=== PATIENT | female | born 1995 | race Caucasian/White ===

== ENCOUNTER 2017-02-16 20:43 | Emergency (ER) | payer SELFPAY ==
[2017-02-16 21:26] LABS: APPEARANCE CLEAR (CLEAR); BILIRUBIN NEGATIVE (NEGATIVE); COLOR YELLOW (YELLOW); GLUCOSE NEGATIVE (NEGATIVE); KETONE NEGATIVE (NEGATIVE); LEUKOCYTE ESTERASE NEGATIVE (NEGATIVE); NITRITE NEGATIVE (NEGATIVE); PROTEIN NEGATIVE (NEGATIVE); SPECIFIC GRAVITY 1.025 (1.005-1.020); UROBILINOGEN NORMAL (NORMAL)
[2017-02-16 21:37] LABS: BASOPHILS 0.1 % (0-2); EOSINOPHILS 1.5 % (0-7); HEMATOCRIT 38.7 % (36.0-48.0); HEMOGLOBIN 13.4 g/dL (12-16); IMMATURE GRANULOCYTES 0.2 % (0-5); LYMPHOCYTES 27.6 % (15-50); MCH 30.7 pg (26.0-34.0); MCHC 34.6 g/dL (31.0-37.0); MCV 88.8 fL (80.0-100.0); MEAN PLATELET VOLUME 10.2 fL (7.4-10.4); MONOCYTES 6.2 % (2-11); NEUTROPHILS 64.4 % (40-80); PLATELET COUNT 162 10x3/uL (130-400); RBC 4.36 10x6/uL (4.00-5.40); RDW 12.6 % (11.5-14.5); WBC 8.8 10x3/uL (4.8-10.8)
[2017-02-16 22:29] LABS: ALKALINE PHOSPHATASE 54 U/L (46-116); ALT (SGPT) 13 U/L (10-68); BILIRUBIN - TOTAL 0.15 mg/dL (0.2-1.3); CALC OSMOLALITY 272 mosm/kg (275-300); CALCIUM 8.7 mg/dL (8.5-10.1); CARBON DIOXIDE 24.9 mmol/L (21.0-32.0); CHLORIDE - SERUM 103 mmol/L (98-107); CREATININE - SERUM 0.5 mg/dL (0.6-1.3); GLUCOSE 77 mg/dL (74-106); POTASSIUM - SERUM 3.6 mmol/L (3.5-5.1); PROTEIN - SERUM 6.3 g/dL (6.4-8.2); SODIUM 138 mmol/L (136-145); UREA NITROGEN 6 mg/dL (7-18); eGFR NON AFRICAN AMERICAN > 90 mL/min (90-120)
[2017-02-16 22:50] LABS: HCG - QUANTITATIVE (MATERNAL) 12200 mIU/mL
== END 2017-02-16 23:07 | disposition home or self-care (01) ==
LOC: D.ER 20:43
PROVIDERS: Emergency Medicine Emergency Medical Services
DX: O26.892 Other specified pregnancy related conditions, second trimester (principal); Z3A.19 19 weeks gestation of pregnancy; N89.8 Other specified noninflammatory disorders of vagina

== ENCOUNTER → 2017-05-01 13:27 | Outpatient (CLI) | payer MEDICAID ==
[2017-05-01 14:52] LABS: APPEARANCE HAZY (CLEAR); COLOR DK YELLOW (YELLOW)
[2017-05-01 14:53] LABS: BILIRUBIN NEGATIVE (NEGATIVE); GLUCOSE NEGATIVE (NEGATIVE); KETONE NEGATIVE (NEGATIVE); LEUKOCYTE ESTERASE TRACE (NEGATIVE); NITRITE NEGATIVE (NEGATIVE); PROTEIN NEGATIVE (NEGATIVE); SPECIFIC GRAVITY 1.015 (1.005-1.020); UROBILINOGEN NORMAL (NORMAL)
[2017-05-01 14:55] LABS: BACTERIA FEW /hpf (NONE SEEN); EPITHELIAL CELLS 0-5 /hpf (0-5); RED CELLS - URINE 0-5 /hpf (0-5); WHITE CELLS - URINE 0-5 /hpf (0-5)
== END | disposition home or self-care (01) ==
LOC: D.LDO 13:27
PROVIDERS: Obstetrics & Gynecology
DX: O26.893 Other specified pregnancy related conditions, third trimester (principal); Z3A.28 28 weeks gestation of pregnancy; R10.9 Unspecified abdominal pain; R10.2 Pelvic and perineal pain

== ENCOUNTER 2017-05-31 20:04 | Outpatient (CLI) | payer MEDICAID | END 2017-05-31 20:45 | disposition home or self-care (01) | LOC: D.LDO 20:04 | DX: Z34.83 Encounter for supervision of other normal pregnancy, third trimester (principal); Z3A.32 32 weeks gestation of pregnancy; W19.XXXA Unspecified fall, initial encounter ==

== ENCOUNTER → 2017-06-15 14:59 | Outpatient (CLI) | payer MEDICAID ==
[2017-06-15 16:17] LABS: BASOPHILS 0.1 % (0-2); HEMATOCRIT 35.3 % (36.0-48.0); HEMOGLOBIN 12.2 g/dL (12-16); IMMATURE GRANULOCYTES 0.4 % (0-5); LYMPHOCYTES 26.3 % (15-50); MCHC 34.6 g/dL (31.0-37.0); MCV 89.6 fL (80.0-100.0); MEAN PLATELET VOLUME 10.1 fL (7.4-10.4); MONOCYTES 6.5 % (2-11); NEUTROPHILS 65.7 % (40-80); PLATELET COUNT 193 10x3/uL (130-400); RBC 3.94 10x6/uL (4.00-5.40); RDW 12.7 % (11.5-14.5); WBC 8.1 10x3/uL (4.8-10.8)
[2017-06-15 17:14] LABS: ALBUMIN 2.6 g/dL (3.4-5.0); BILIRUBIN - DIRECT 0.04 mg/dL (0.00-0.30); BILIRUBIN - INDIRECT 0.13 mg/dL (0.00-1.00); BILIRUBIN - TOTAL 0.17 mg/dL (0.2-1.3); PROTEIN - SERUM 6.2 g/dL (6.4-8.2)
[2017-06-15 17:18] LABS: APPEARANCE CLEAR (CLEAR); BILIRUBIN NEGATIVE (NEGATIVE); COLOR YELLOW (YELLOW); GLUCOSE NEGATIVE (NEGATIVE); KETONE NEGATIVE (NEGATIVE); LEUKOCYTE ESTERASE NEGATIVE (NEGATIVE); NITRITE NEGATIVE (NEGATIVE); PROTEIN NEGATIVE (NEGATIVE); SPECIFIC GRAVITY 1.015 (1.005-1.020); UROBILINOGEN NORMAL (NORMAL)
== END | disposition home or self-care (01) ==
LOC: D.LDO 14:59
PROVIDERS: Obstetrics & Gynecology
DX: O36.8130 Decreased fetal movements, third trimester, not applicable or unspecified (principal); Z3A.34 34 weeks gestation of pregnancy

== ENCOUNTER 2017-06-20 12:10 | Inpatient (IN) | payer MEDICAID ==
[2017-06-20 12:53] LABS: APPEARANCE CLEAR (CLEAR); BILIRUBIN NEGATIVE (NEGATIVE); COLOR YELLOW (YELLOW); GLUCOSE NEGATIVE (NEGATIVE); KETONE NEGATIVE (NEGATIVE); LEUKOCYTE ESTERASE NEGATIVE (NEGATIVE); NITRITE NEGATIVE (NEGATIVE); PROTEIN NEGATIVE (NEGATIVE); SPECIFIC GRAVITY 1.005 (1.005-1.020); UROBILINOGEN NORMAL (NORMAL)
[2017-06-20 15:15] LABS: HEMATOCRIT 34.8 % (36.0-48.0); HEMOGLOBIN 11.8 g/dL (12-16); MCH 30.9 pg (26.0-34.0); MCHC 33.9 g/dL (31.0-37.0); MCV 91.1 fL (80.0-100.0); RBC 3.82 10x6/uL (4.00-5.40); RDW 12.9 % (11.5-14.5); WBC 10.7 10x3/uL (4.8-10.8)
--- NOTE | 2017-06-20 18:25 | NUR ---
CALLED IN TO DO CASE. PREPARED FOR IT THEN TOLD HE HAD TO FINISH A DELIVERY. THEN TOLD HE HAD TO DO A REPAIR AND TO LEAVE OR WAIT AN HOUR. BUMPED BY A LAP APPY. TOLD HE WOULD LET THE PT DECIDE IF SHE WANTED THE SECTION. PT DECIDED TO LEAVE
[2017-06-23 07:25] LABS: RAPID PLASMA REAGIN Non Reactive (Non Reactive)
== END 2017-06-20 18:40 | disposition home or self-care (01) | DRG 782 ==
LOC: D.LDO 12:10 → D.LD 14:31
PROVIDERS: ADMIT Obstetrics & Gynecology
DX: O34.211 Maternal care for low transverse scar from previous cesarean delivery (principal); Z3A.35 35 weeks gestation of pregnancy; O99.333 Smoking (tobacco) complicating pregnancy, third trimester

== ENCOUNTER → 2017-06-24 10:48 | Outpatient (CLI) | payer MEDICAID | END | disposition home or self-care (01) | LOC: D.LDO 10:48 | DX: O62.9 Abnormality of forces of labor, unspecified (principal); Z3A.36 36 weeks gestation of pregnancy ==

== ENCOUNTER 2017-07-13 09:15 | Inpatient (IN) | payer MEDICAID ==
[~2017-07-13] VITALS: Ht 165.1 cm; Wt 123.6 kg
[2017-07-13] MEDS ORDERED: PREVACID15 MG PO (11:05)
[2017-07-13 11:18] VITALS: Ht 165.1 cm; Wt 123.6 kg
[2017-07-14 07:20] VITALS: BP 112/64
[2017-07-14] MEDS ORDERED: HYDROCODONE-APA1 TAB PO (15:14)
[2017-07-14] MEDS ORDERED: IBUPROFEN600 MG PO (15:14)
== END 2017-07-14 15:45 | disposition home or self-care (01) | DRG 766 ==
LOC: D.LD 09:15 → D.WS 09:15 → D.SDCHOLD 12:00 → D.WS 16:08
PROVIDERS: ADMIT Obstetrics & Gynecology
PROC: 10D00Z1 Extraction of Products of Conception, Low, Open Approach (ICD-10-PCS; principal; 2017-07-13 12:00)
DX: O34.219 Maternal care for unspecified type scar from previous cesarean delivery (principal); Z3A.39 39 weeks gestation of pregnancy; Z37.0 Single live birth; O26.893 Other specified pregnancy related conditions, third trimester; Z67.91 Unspecified blood type, Rh negative; O99.214 Obesity complicating childbirth; O99.334 Smoking (tobacco) complicating childbirth

== ENCOUNTER 2017-07-23 20:40 | Observation (INO) | payer MEDICAID ==
[~2017-07-23 20:40] MED LIST: HYDROCODONE-APA1 TAB PO; IBUPROFEN600 MG PO; PREVACID15 MG PO
[2017-07-23 21:28] LABS: APPEARANCE CLEAR (CLEAR); BILIRUBIN NEGATIVE (NEGATIVE); COLOR YELLOW (YELLOW); GLUCOSE NEGATIVE (NEGATIVE); KETONE NEGATIVE (NEGATIVE); NITRITE NEGATIVE (NEGATIVE); PROTEIN NEGATIVE (NEGATIVE); UDS - AMPHET NEGATIVE QUAL (NEGATIVE); UDS - BARB NEGATIVE QUAL (NEGATIVE); UDS - BENZO NEGATIVE QUAL (NEGATIVE); UDS - COCAINE NEGATIVE QUAL (NEGATIVE); UDS - OPIATE NEGATIVE QUAL (NEGATIVE); UDS - PCP NEGATIVE QUAL (NEGATIVE); UDS - THC NEGATIVE QUAL (NEGATIVE); UROBILINOGEN NORMAL (NORMAL)
[2017-07-23 21:30] LABS: BACTERIA FEW /hpf (NONE SEEN)
[2017-07-23 21:31] LABS: RED CELLS - URINE 0-5 /hpf (0-5)
[2017-07-23 21:32] LABS: BASOPHILS 0.2 % (0-2); EOSINOPHILS 1.6 % (0-7); HEMATOCRIT 37.6 % (36.0-48.0); HEMOGLOBIN 12.9 g/dL (12-16); IMMATURE GRANULOCYTES 0.2 % (0-5); MCH 30.4 pg (26.0-34.0); MCHC 34.3 g/dL (31.0-37.0); MCV 88.5 fL (80.0-100.0); MEAN PLATELET VOLUME 9.6 fL (7.4-10.4); MONOCYTES 6.1 % (2-11); NEUTROPHILS 62.9 % (40-80); RBC 4.25 10x6/uL (4.00-5.40); RDW 12.4 % (11.5-14.5)
[2017-07-23 21:34] LABS: PLATELET COUNT 243 10x3/uL (130-400)
[2017-07-23 21:46] LABS: ALBUMIN 3.3 g/dL (3.4-5.0); ALKALINE PHOSPHATASE 103 U/L (46-116); ALT (SGPT) 19 U/L (10-68); BILIRUBIN - TOTAL 0.21 mg/dL (0.2-1.3); CALC OSMOLALITY 277 mosm/kg (275-300); CALCIUM 9.1 mg/dL (8.5-10.1); CARBON DIOXIDE 25.6 mmol/L (21.0-32.0); CHLORIDE - SERUM 106 mmol/L (98-107); GLUCOSE 88 mg/dL (74-106); POTASSIUM - SERUM 3.7 mmol/L (3.5-5.1); PROTEIN - SERUM 7.3 g/dL (6.4-8.2); SODIUM 141 mmol/L (136-145); UREA NITROGEN 8 mg/dL (7-18); eGFR NON AFRICAN AMERICAN 73 mL/min (90-120)
[2017-07-23 22:18] LABS: CREATINE KINASE 112 UL (21-215); PRO BNP 1263 pg/mL (0-125); TROPONIN-I < 0.017 ng/mL (0.000-0.060)
--- NOTE | 2017-07-24 01:45 | NUR ---
RECEIVED TO 1278 VIA WHEELCHAIR FROM ER. PT. WITH SALINE LOCK IN LT AC. PT. IN FLEECE [place] PANTS AND TSHIRT. DESIRES TO LEAVE SAME CLOTHES ON INCLUDING HOUSE SHOES TO GET INTO BED. PT. C/O FEELING COLD. COVERED WITH BLANKET. PT. REPORTS SCANT DARK VAGINAL SPOTTING . LOWER ABD. INCISION NOTED WITH EDGES APPROXIMATED POST OF 10 DAYS AGO. PT. C/O HEADACHE AND NAUSEA. INFORMED PT. WOULD HAVE TO REVIEW ORDERS.
--- NOTE | 2017-07-24 01:50 | NUR ---
PT. REQUESTING PAIN MEDICATION. INFORMED PT. OF TIME SHE RECEIVED LAST DOSE AND WHEN NEXT DOSE IS DUE. PT. SPEECH SLOW AND SLURRED PRIOR TO HER DOZING OFF.
--- NOTE | 2017-07-24 01:59 | NUR ---
ZOFRAN 4MG GIVEN IVP SLOWLY FOR C/O NAUSEA. PT. SITTING UP IN BED WITH HEAD SLUMPED AND ASLEEP. AWAKENS TO VERBAL STIMULATION.
[2017-07-24] MEDS ORDERED: ACETAMINOPHEN500 M1 PO (02:07)
[2017-07-24 02:11] VITALS: BP 142/49; BMI 43.3
[2017-07-24] MEDS ORDERED: IMITREX100 MG (02:11)
--- NOTE | 2017-07-24 02:29 | NUR ---
CURRENTLY HOB AT 30 DEGREES AND PT. UNWILLING TO LOWER HEAD OF BED. PT. SLUMPED OVER IN BED SLEEPING.
--- NOTE | 2017-07-24 02:30 | NUR ---
ADMIT ASSESSMENT COMPLETED. PT.REPORTS THAT SHE HAS TAKEN ALL OF NORCO 10MG THAT SHE WAS DISCHARGED HOME POST WITH. PT. STATES HER DROPPED HER OFF AT THE ER AND IS PRESENTLY AT HOME WITH INFANT AND OTHER CHILDREN. PT. SLOW TO ANSWER QUESTIONS AND QUICK TO DOZE OFF DURING QUESTIONING.
--- NOTE | 2017-07-24 02:32 | NUR ---
NO PITTING EDEMA NOTED IN LOWER EXTREMITIES. APPLE JUICE SERVED PER PT. REQUEST.
[2017-07-24 02:34] VITALS: BP 134/77
--- NOTE | 2017-07-24 02:47 | NUR ---
PT. CURRENTLY ASLEEP AND DOES NOT AROUSE TO THIS NURSE IN ROOM. CALL LIGHT WITHIN REACH AND SIDE RAILS UP X 2.
--- NOTE | 2017-07-24 03:18 | NUR ---
LYING ON BACK WITH HOB AT 30 DEGREES ASLEEP. RESPIRATIONS REGULAR.
--- NOTE | 2017-07-24 03:58 | NUR ---
LYING ON BACK WITH EYES CLOSED. RESPIRATIONS REGULAR.
--- NOTE | 2017-07-24 05:35 | NUR ---
LYING IN LT TILT WITH EYES CLOSED. RESPIRATIONS REGULAR.
--- NOTE | 2017-07-24 07:20 | NUR ---
DR MENDEZ HERE. VISITS WITH PT. DISCUSSES POC WITH PT.
[2017-07-24 07:28] VITALS: BP 136/87
--- NOTE | 2017-07-24 07:28 | NUR ---
ASSESSMENT COMPLETED. PT FALLS ASLEEP WHILE NURSE TALKING TO PT. HRRR WITHOUT AUDIBLE MURMUR. BBS CLEAR. BS X 4. ABDOMEN SOFT/NON-DISTENDED. ABD INCISION TO LOWER ABDOMEN WELL HEALED WITHOUT REDNESS, SWELLING OR DRAINAGE NOTED. SCANT BROWN DISCHARGE NOTED ON PERIPAD. PT STATES HAS NOT CHANGED PERIPAD SINCE ARRIVAL TO L&D. NEG HOMANS' SIGN. PPP. NO EDEMA NOTED TO BLE. SL TO LEFT AC. SITE CLEAR. PERLLA. STICK ROLLER STRONG WITH BOTH HANDS. PT STATES C/O HEADACHE NOT RELIEVED BY PAIN MEDICATION. PT QUICKLY FALLS ASLEEP IN BETWEEN QUESTIONS/STATEMENTS. PT REQUESTS AND RECEIVES MORE APPLE JUICE. DENIES NAUSEA AT THIS TIME. SR UP XP 2. CALL LIGHT IN REACH.
[2017-07-24 07:29] VITALS: BP 123/68
--- NOTE | 2017-07-24 08:15 | NUR ---
DR MENDEZ TO ROOM. LIDOCAINE 4% 1 ML EACH NOSTRIL GIVEN PER DR MENDEZ. PT INSTRUCTED ON MEDICATION. VERBALIZES UNDERSTANDING.
--- NOTE | 2017-07-24 09:30 | NUR ---
PT LYING SUPINE IN BED WITH HOB UP 45 DEGREES. EYES CLOSED. RESP NON-LABORED. PT NOT DISTURBED TO ALLOW FOR REST.
--- NOTE | 2017-07-24 11:10 | NUR ---
DR MENDEZ CALLS UNIT. [facility] HAS TALKED WITH RADIOLOGY. DR MENDEZ GIVES DISCHARGE ORDER.
[2017-07-24] MEDS ORDERED: REGLAN10 MG PO (11:42)
[2017-07-24] MEDS ORDERED: TYLENOL W/CODEI1 TAB PO (11:43)
--- NOTE | 2017-07-24 12:03 | NUR ---
DISCHARGE INSTRUCTIONS GIVEN TO PT. PT VERBALIZES UNDERSTANDING OF ALL INSTRUCTIONS. COPIES GIVEN TO PT. RX FOR REGLAN AND TYLENOL #3 GIVEN TO PT. PT INSTRUCTED TO CALL CLINIC ON THURSDAY PER DR MENDEZ RE: LIDOCAINE NASAL SPRAY. PT VERBALIZES UNDERSTANDING.
--- NOTE | 2017-07-24 12:10 | NUR ---
PT HERE. DISCHARGED VIA WHEELCHAIR TO PRIVATE VEHICLE. PT NATALIA WELL.
--- NOTE | 2017-07-28 22:01 | EC ---
PATIENT:CORY PACHECO DATE OF SERVICE: 07/23/17 SEX: F MEDICAL RECORD: [id number] DATE OF : [birth year] LOCATION:[facility] AGE OF PATIENT: 22 ADMISSION DATE: 07/23/17 REFERRING PHYSICIAN: INTERPRETING PHYSICIAN: GENNARO ALY MD ECHOCARDIOGRAM REPORT ECHO CHARGES 4 ECHO COMPLETE CLINICAL DIAGNOSIS: SOB/ELEVATED PORTIME/BNP POST ECHOCARDIOGRAPHIC MEASUREMENTS (adult normal given) AC root (d.<3.7cm) 3.2 cm LV Septum d (<1.2 cm> 1.2 cm Valve Excursion 2.1 cm LV Septum (systole) 1.3 cm Left Atria (s.<4.0cm> 3.4 cm LVPW d(<1.2cm) 1.1 cm RV (d.<2.3cm) 3.2 cm LVPW (sytole) 1.7 cm LV diastole(<5.6CM) 5.3 cm MV E-F(>70mm/sec) cm LV systole 3.6 cm LVOT Diameter 2.1 cm MV exc.(>10mm) cm Est.ejection fraction (50-75%) % Pericardial Effusion N DOPPLER: LVIT cm/sec A 77.0 cm/sec E 101 cm/sec LA cm/sec RVSP 27 mmHg LVOT 107 cm/sec AOP1/2T m/s Asc. Ao 138 cm/sec RVOT 92 cm/sec RA cm/sec PA 150 cm/sec AV Gradient Peak 7.60 mmHg AV Mean 3.53 mmHg AV Area 3.0 cm MV Gradient Peak 8.03 mmHg MV Mean 2.35 mmHg MV Area cm COMMENTS: Unishear Operator: 2 FELIPA CHICAS Files Supervisor: 4 Dr. Aly TAPE# PACS DATE OF SERVICE: 07/24/2017 PROCEDURE: Transthoracic echocardiogram. FINDINGS: 1. The left ventricle is shown to have mild concentric left ventricular hypertrophy. The inflow characteristics are consistent with pseudonormalization mild diastolic dysfunction. 2. The left ventricular ejection fraction is 65%. There are no regional wall motion abnormalities. ECHOCARDIOGRAM REPORT [id number] CORY PACHECO 3. The mitral valve is normal. 4. The left atrium is normal. 5. The right atrium is normal. 6. The tricuspid valve is normal with normal right ventricular systolic pressures. 7. The pericardium is normal. 8. The pulmonic valve is normal. 9. The right atrium is normal. CONCLUSION: The patient has normal heart function and normal inflow characteristics. No evidence of systolic or diastolic dysfunction. TRANSINT:[id number] Voice Confirmation ID: [id number] DOCUMENT ID: [id number] GENNARO ALY MD at 2201 CC: [id number] DICTATION DATE: 07/27/17 1035 OUTPATIENT PHYSICAL THERAPIST ASSISTANT: 07/27/17 1140 DIS IN 07/24/17 [facility] [address] [place] [address]
== END 2017-07-24 12:10 | disposition home or self-care (01) ==
LOC: D.ER 20:40 → OBSVTIME 23:50 → D.LD 23:50
PROVIDERS: Emergency Medicine; ADMIT Obstetrics & Gynecology
DX: O90.89 Other complications of the puerperium, not elsewhere classified (principal); R51 Headache

== ENCOUNTER → 2017-08-05 15:56 | Outpatient (CLI) | payer MEDICAID ==
[2017-07-24 02:11] VITALS: BMI 43.3
[~2017-08-05 15:56] MED LIST changes: +ACETAMINOPHEN500 M1 PO; +IMITREX100 MG; +REGLAN10 MG PO; +TYLENOL W/CODEI1 TAB PO
== END | disposition home or self-care (01) ==
LOC: D.US 15:56
DX: R07.9 Chest pain, unspecified (principal); R10.9 Unspecified abdominal pain

== ENCOUNTER 2017-11-30 21:35 | Emergency (ER) | payer SELFPAY ==
[2017-11-30 22:15] LABS: AMORPHOUS SEDIMENT >1+ /lpf (NONE SEEN); APPEARANCE SLT CLOUDY (CLEAR); BACTERIA MODERATE /hpf (NONE SEEN); BILIRUBIN NEGATIVE (NEGATIVE); COLOR YELLOW (YELLOW); GLUCOSE NEGATIVE (NEGATIVE); KETONE NEGATIVE (NEGATIVE); MUCUS <1+ /lpf (NONE SEEN); NITRITE NEGATIVE (NEGATIVE); PROTEIN NEGATIVE (NEGATIVE); RED CELLS - URINE OCC /hpf (0-5); SPECIFIC GRAVITY 1.015 (1.005-1.020); UROBILINOGEN NORMAL (NORMAL); WHITE CELLS - URINE 0-5 /hpf (0-5)
[2017-11-30 22:32] LABS: BASOPHILS 0.2 % (0-2); EOSINOPHILS 1.4 % (0-7); HEMATOCRIT 42.8 % (36.0-48.0); HEMOGLOBIN 14.3 g/dL (12-16); LYMPHOCYTES 26.3 % (15-50); MCH 28.9 pg (26.0-34.0); MCHC 33.4 g/dL (31.0-37.0); MCV 86.6 fL (80.0-100.0); MEAN PLATELET VOLUME 9.8 fL (7.4-10.4); MONOCYTES 6.8 % (2-11); NEUTROPHILS 65.3 % (40-80); RBC 4.94 10x6/uL (4.00-5.40); RDW 12.6 % (11.5-14.5)
[2017-11-30 22:33] LABS: PLATELET COUNT 176 10x3/uL (130-400)
[2017-11-30 22:37] LABS: HCG SERUM NEGATIVE (NEGATIVE)
[2017-11-30 22:43] LABS: ALBUMIN 3.8 g/dL (3.4-5.0); ALKALINE PHOSPHATASE 101 U/L (46-116); ALT (SGPT) 95 U/L (10-68); CALC OSMOLALITY 276 mosm/kg (275-300); CALCIUM 8.8 mg/dL (8.5-10.1); CARBON DIOXIDE 27.2 mmol/L (21.0-32.0); CHLORIDE - SERUM 104 mmol/L (98-107); CREATININE - SERUM 0.8 mg/dL (0.6-1.3); GLUCOSE 79 mg/dL (74-106); POTASSIUM - SERUM 3.8 mmol/L (3.5-5.1); PROTEIN - SERUM 7.6 g/dL (6.4-8.2); SODIUM 140 mmol/L (136-145); UREA NITROGEN 10 mg/dL (7-18); eGFR NON AFRICAN AMERICAN > 90 mL/min (90-120)
[2017-12-01 01:37] LABS: AMYLASE - SERUM 52 U/L (25-115); LIPASE 143 U/L (73-393)
== END 2017-12-01 03:49 | disposition home or self-care (01) ==
LOC: D.ER 21:35
PROVIDERS: Family Medicine
DX: N39.0 Urinary tract infection, site not specified (principal); K63.89 Other specified diseases of intestine; I10 Essential (primary) hypertension

== ENCOUNTER 2018-05-07 13:07 | Emergency (ER) | payer BC ==
[~2018-05-07] VITALS: Ht 162.6 cm; Wt 110.0 kg
[2018-05-07 13:11] VITALS: Ht 162.6 cm; Wt 110.0 kg
[2018-05-07 14:44] LABS: HCG URINE NEGATIVE (NEGATIVE)
[2018-05-07] MEDS ORDERED: TORADOL10 MG PO (15:49)
[2018-05-07 16:21] VITALS: BP 121/78
== END 2018-05-07 16:22 | disposition home or self-care (01) ==
LOC: D.ER 13:07
PROVIDERS: Emergency Medicine
DX: S39.011A Strain of muscle, fascia and tendon of abdomen, initial encounter (principal); X58.XXXA Exposure to other specified factors, initial encounter; Y93.89 Activity, other specified; Y92.89 Other specified places as the place of occurrence of the external cause; F17.200 Nicotine dependence, unspecified, uncomplicated

== ENCOUNTER 2019-11-06 23:19 | Emergency (ER) | payer SELFPAY ==
[~2019-11-06] VITALS: Ht 162.6 cm; Wt 99.8 kg
[~2019-11-06 23:19] MED LIST changes: +TORADOL10 MG PO
[2019-11-06 23:35] VITALS: Ht 162.6 cm; Wt 99.8 kg
[2019-11-07 00:17] LABS: BASOPHILS 0.1 % (0-2); CALC OSMOLALITY 282 mosm/kg (275-300); CALCIUM 8.9 mg/dL (8.5-10.1); CARBON DIOXIDE 28.4 mmol/L (21.0-32.0); CHLORIDE - SERUM 106 mmol/L (98-107); CREATININE - SERUM 0.8 mg/dL (0.6-1.3); EOSINOPHILS 2.6 % (0-7); GLUCOSE 93 mg/dL (74-106); HEMOGLOBIN 14.8 g/dL (12-16); IMMATURE GRANULOCYTES 0.1 % (0-5); LYMPHOCYTES 41.6 % (15-50); MCH 30.8 pg (26.0-34.0); MCHC 35.2 g/dL (31.0-37.0); MCV 87.3 fL (80.0-100.0); MEAN PLATELET VOLUME 9.8 fL (7.4-10.4); MONOCYTES 6.3 % (2-11); NEUTROPHILS 49.3 % (40-80); PLATELET COUNT 191 10x3/uL (130-400); POTASSIUM - SERUM 3.5 mmol/L (3.5-5.1); RBC 4.81 10x6/uL (4.00-5.40); RDW 12.3 % (11.5-14.5); SODIUM 142 mmol/L (136-145); UREA NITROGEN 13 mg/dL (7-18); eGFR NON AFRICAN AMERICAN > 90 mL/min (90-120)
[2019-11-07 00:20] LABS: APPEARANCE CLEAR (CLEAR); BILIRUBIN NEGATIVE (NEGATIVE); COLOR YELLOW (YELLOW); GLUCOSE NEGATIVE (NEGATIVE); KETONE NEGATIVE (NEGATIVE); NITRITE NEGATIVE (NEGATIVE); PROTEIN NEGATIVE (NEGATIVE); UROBILINOGEN NORMAL (NORMAL)
[2019-11-07 00:21] LABS: BACTERIA NONE SEEN /hpf (NEGATIVE); EPITHELIAL CELLS 0-5 /hpf (0-5); RED CELLS - URINE 0-5 /hpf (0-5); WHITE CELLS - URINE 0-5 /hpf (NEGATIVE)
[2019-11-07 00:23] LABS: ALBUMIN 3.4 g/dL (3.4-5.0); ALKALINE PHOSPHATASE 76 U/L (46-116); ALT (SGPT) 51 U/L (10-68); AMYLASE - SERUM 61 U/L (25-115); BILIRUBIN - TOTAL 0.22 mg/dL (0.2-1.3); LIPASE 180 U/L (73-393); PROTEIN - SERUM 6.9 g/dL (6.4-8.2)
[2019-11-07 00:32] LABS: HCG SERUM NEGATIVE (NEGATIVE)
[2019-11-07] MEDS ORDERED: ULTRAM50 MG PO (01:39)
[2019-11-07 03:01] VITALS: BP 110/89
== END 2019-11-07 02:50 | disposition home or self-care (01) ==
LOC: D.ER 23:19
PROVIDERS: Emergency Medicine
DX: R10.9 Unspecified abdominal pain (principal); R30.9 Painful micturition, unspecified; Z86.73 Personal history of transient ischemic attack (TIA), and cerebral infarction without residual deficits

== ENCOUNTER 2020-04-09 15:57 | Emergency (ER) | payer OTHER ==
[~2020-04-09] VITALS: Ht 162.6 cm; Wt 109.1 kg
[~2020-04-09 15:57] MED LIST changes: +ULTRAM50 MG PO
[2020-04-09 16:04] VITALS: BP 114/76; Ht 162.6 cm; Wt 109.1 kg
== END 2020-04-09 19:00 | disposition home or self-care (01) ==
LOC: D.ER 15:57
DX: O26.891 Other specified pregnancy related conditions, first trimester (principal); Z3A.12 12 weeks gestation of pregnancy; W19.XXXA Unspecified fall, initial encounter; Y93.9 Activity, unspecified; Y92.9 Unspecified place or not applicable; Z91.81 History of falling; R07.81 Pleurodynia

== ENCOUNTER 2020-06-11 17:10 | Outpatient (CLI) | payer SELFPAY ==
[2020-04-09 16:04] VITALS: BMI 41.3
[2020-06-11 18:22] LABS: BILIRUBIN NEGATIVE (NEGATIVE); GLUCOSE NEGATIVE (NEGATIVE); KETONE NEGATIVE (NEGATIVE); NITRITE NEGATIVE (NEGATIVE); UROBILINOGEN NORMAL (NORMAL)
[2020-06-11 18:25] LABS: RED CELLS - URINE OCC /hpf (0-5); WHITE CELLS - URINE 0-5 /hpf (NEGATIVE)
[2020-06-11 18:26] LABS: BACTERIA FEW /hpf (NEGATIVE)
== END 2020-06-11 19:25 | disposition home or self-care (01) ==
LOC: D.LDO 17:10
PROVIDERS: ATTEND Student in an Organized Health Care Education/Training Program
DX: O26.892 Other specified pregnancy related conditions, second trimester (principal); Z3A.21 21 weeks gestation of pregnancy; R10.10 Upper abdominal pain, unspecified; R51 Headache

== ENCOUNTER → 2020-06-21 09:41 | Outpatient (CLI) | payer OTHER ==
[2020-04-09 16:04] VITALS: BMI 41.3
== END | disposition home or self-care (01) ==
LOC: D.US 09:41
PROVIDERS: ATTEND Obstetrics & Gynecology
DX: R60.0 Localized edema (principal)

== ENCOUNTER 2021-02-25 14:17 | Emergency (ER) | payer OTHER ==
[~2021-02-25] VITALS: Ht 162.6 cm; Wt 109.1 kg
[~2021-02-25 14:17] MED LIST changes: +PERCOCET 10-321 EAC1 PO
[2021-02-25 14:32] VITALS: Ht 162.6 cm; Wt 109.1 kg
[2021-02-25 15:25] LABS: BASOPHILS 0.2 % (0-2); EOSINOPHILS 3.1 % (0-7); HEMATOCRIT 41.4 % (36.0-48.0); HEMOGLOBIN 14.3 g/dL (12-16); IMMATURE GRANULOCYTES 0.2 % (0-5); LYMPHOCYTE ABS# 2.35 10x3/uL (1.18-3.74); LYMPHOCYTES 26.3 % (15-50); MCH 30.1 pg (26.0-34.0); MCHC 34.5 g/dL (31.0-37.0); MCV 87.2 fL (80.0-100.0); MEAN PLATELET VOLUME 10.2 fL (7.4-10.4); NEUTROPHIL ABS# 5.82 10x3/uL (1.56-6.13); NEUTROPHILS 65.2 % (40-80); RBC 4.75 10x6/uL (4.00-5.40); RDW 12.3 % (11.5-14.5); WBC 8.9 10x3/uL (4.8-10.8)
[2021-02-25 15:29] LABS: INR 1.02 (0.85-1.17); PROTIME 12.4 SECONDS (11.6-15.0)
[2021-02-25 15:30] LABS: APTT 28.4 SECONDS (22.8-39.4)
[2021-02-25 15:34] LABS: CALC OSMOLALITY 277 mosm/kg (275-300); CALCIUM 9.1 mg/dL (8.5-10.1); CARBON DIOXIDE 25.2 mmol/L (21.0-32.0); CHLORIDE - SERUM 103 mmol/L (98-107); CREATININE - SERUM 0.9 mg/dL (0.6-1.3); GLUCOSE 93 mg/dL (74-106); POTASSIUM - SERUM 3.9 mmol/L (3.5-5.1); SODIUM 139 mmol/L (136-145); UREA NITROGEN 12 mg/dL (7-18); eGFR NON AFRICAN AMERICAN 80 mL/min (90-120)
[2021-02-25 15:47] LABS: ALBUMIN 3.6 g/dL (3.4-5.0); ALKALINE PHOSPHATASE 107 U/L (30-120); ALT (SGPT) 215 U/L (10-68); BILIRUBIN - TOTAL 0.26 mg/dL (0.2-1.3); HCG - QUANTITATIVE (MATERNAL) 0 mIU/mL; PLATELET COUNT 227 10x3/uL (130-400); PROTEIN - SERUM 7.2 g/dL (6.4-8.2)
[2021-02-25 16:03] LABS: HCG URINE NEGATIVE (NEGATIVE)
[2021-02-25] MEDS ORDERED: HYDROCODON-ACE1 EAC7 PO (17:19)
[2021-02-25 17:27] VITALS: BP 124/82
== END 2021-02-25 17:42 | disposition home or self-care (01) ==
LOC: D.ER 14:17
PROVIDERS: Emergency Medicine
DX: R10.32 Left lower quadrant pain (principal); R10.2 Pelvic and perineal pain